=== PATIENT | female | born 1950 | race Caucasian/White ===

== ENCOUNTER 2024-05-29 19:12 | Emergency (ER) | payer MEDICARE, SELFPAY ==
[2024-05-29 19:31] VITALS: BP 167/109
--- NOTE | 2024-05-29 22:00 | ED.MUSCINJ ---
HPI-Injury
General
Chief Complaint: Musculo-Skeletal Complaint
Source: patient
Exam Limitations: none
Time Seen by Provider: 05/29/24 21:14
Nursing documentation reviewed up to this point in time: agreed with
History of Present Illness-Injury
Is this injury a work related problem?: No
Is pt an associate of [facility]?: No
Initial Injury comments:
Patient states she fell walking down carpeted steps. Denies hitting her head. COmplains of pain to left wrist. Injury occurred just [employer]
Past History
Past History
ED Past Medical History: None
Review of Systems
Review of Systems
Allergies reviewed?: Yes
All Other Systems: ROS reviewed and negative except as documented in HPI and ROS
Constitutional: Reports no symptoms
Musculoskeletal: Reports joint pain (Pain to left wrist.)
Skin: Reports no symptoms
Neurological: Reports no symptoms
Psychiatric: Reports no symptoms
Musculoskeletal Injury Exam
Musculoskeletal Injury Exam
Left Wrist:
Pain with Movement?: Moderate
Tender to palpation?: Moderate
Soft tissue swelling?: Moderate
External deformity and angulation?: Mild
Joint effusion?: None
Contusion?: None
Hematoma-local bleeding into tissue?: Moderate
Strain- Sprain- Tear (Connective tissue injury)?: Moderate
Crepitus with movement?: No
Joint instability?: No
Malalignment/deformity?: No
Range of motion: Limited
Distal skin color and temperature: normal-warm & good color
Capillary Refill: normal
Normal distal neurovascular exam?: Yes
Peripheral Pulses: radial (left): 3+
Phy Exam
General Physical Exam
General Presentation: well appearing and no apparent distress
General age: appears stated age
General Skin: warm
General Habitus: normal
General Mental: alert
Musculoskeletal Exam
Musculoskeletal Exam: neuro vasc intact and other (No pain to left shoulder or elbow.)
Skin Exam
Skin Exam: normal color, warm/dry and no rash
Psychiatric Exam
Psychiatric Exam: normal mood/affect
Injury Course
Orders/Labs/Results
Orders:
Orders
05/29/24 19:34
CR Forearm - Left 2 View Urgent
Comment:
Reason For Exam: pain
CR Wrist - Left Min 3 Views Urgent
Comment:
Reason For Exam: pain
05/29/24 21:38
Sling Left-Treatment ONCE
[place] Left-Treatment ONCE
*Radiology
Radiology exam reviewed: radiology read reviewed
*Pulse Oximetry
Patient hypoxic: no
*Critical Care Note
Total Time (30-74mins, 75-104mins- exclusive of procedures): Not Applicable
ED Attending Note
-
Portions of this chart may have been created with voice recognition software.� Occasional wrong word or��sound alike� substitutions may have occurred due to the inherent limitations of voice recognition software.
Discharge Plan
Departure
Patient Disposition: Home (Routine Discharge)
Date of Disposition: 05/29/24
Time of Disposition: 21:39
Patient with high blood pressure during this ER visit?: No
Condition: Good
Discharge Problem:
Fracture of wrist
Instructions: Wrist Fracture (DC), How to Use a Shoulder Sling, Using Cold for Pain, Splint Care
Referrals:
Kenyon Lyons MD [Active] - Call in 1-3 days for appt
Interventions
Interventions:
*Risk Screen - Suicide Last Done: 05/29/24 19:31
*Neglect/Abuse Screening Last Done: 05/29/24 19:31
ED-Musculoskeletal Assessment Last Done: 05/29/24 21:11
Discharge Date and Time
Print Language: MACEDONIAN
== END 2024-05-29 22:12 | disposition home or self-care (01) ==
LOC: EMR 19:12
PROVIDERS: EMERGENCY PHYSICIAN Emergency Medicine
DX: S62.102A Fracture of unspecified carpal bone, left wrist, initial encounter for closed fracture (principal); S60.212A Contusion of left wrist, initial encounter; W10.9XXA Fall (on) (from) unspecified stairs and steps, initial encounter; Y93.01 Activity, walking, marching and hiking
CPT/HCPCS: 99283; 29125; 73090; 73110

== ENCOUNTER → 2024-06-01 13:19 | Outpatient (REF) | payer MEDICARE, SELFPAY ==
[2024-06-01 13:52] LABS: Hematocrit 38.5 % (37.0-47.0); Mean Corp Hgb Conc. 33.8 g/dL (33.0-37.0); Mean Corpuscular Hgb 31.4 pg (27.0-31.0); Mean Platelet Volume 10.2 fL (7.4-10.4); Platelet Count 241 10^3/uL (130-400); Red Blood Cell Count 4.14 10^6/uL (4.20-5.40); Red Cell Dist. Width 14.2 % (11.5-14.5); White Blood Cell Count 8.2 10^3/uL (4.8-10.8)
== END ==
LOC: SDSPAT 13:19
PROVIDERS: ATTENDING PHYSICIAN Orthopaedic Surgery
DX: Z01.818 Encounter for other preprocedural examination (principal)
CPT/HCPCS: 36415; 85027; 93005

== ENCOUNTER 2024-06-07 06:24 | Day surgery (SDC) | payer MEDICARE, SELFPAY ==
[2024-06-01 14:05] VITALS: BMI 21.0
--- NOTE | 2024-06-01 16:52 | PTCARENOTE ---
Abn ECG, Dr. García made aware, no additional interventions requested.
[2024-06-07] VITALS (10 sets, daily range): BP systolic 89–183; BP diastolic 56–103; BMI 21.0
[2024-06-07] MEDS: NORMOSOL-R/PLASMALYTE-A 1000 IV (11:30)
[2024-06-07] MEDS: TYLENOL 1000 MG PO (11:30)
[2024-06-07] MEDS: CELEBREX 200 MG PO (11:30)
== END 2024-06-07 15:57 | disposition home or self-care (01) ==
LOC: SDS 06:24
PROVIDERS: ATTENDING PHYSICIAN Orthopaedic Surgery
DX: S52.572A Other intraarticular fracture of lower end of left radius, initial encounter for closed fracture (principal); W10.9XXA Fall (on) (from) unspecified stairs and steps, initial encounter
CPT/HCPCS: 25607; C1713